=== PATIENT | male | born 1965 | race Caucasian/White ===

== ENCOUNTER 2017-07-29 07:01 | Day surgery (SDC) | payer OTHER ==
[2017-07-22 15:00] VITALS: BMI 29.2
[~2017-07-29 07:01] MED LIST: LACTATED RINGERS 1,000 ML IV SCH; LIDOCAINE 1% 20 ML VIAL (10MG/ML) FOR IV START INTRADERMA PRN
[2017-07-29 07:16] VITALS: TEMP 98.6
[2017-07-29] MEDS ORDERED: LIDOCAINE 1% INJ 10MG/ML (20 ML MDV) ONE (07:38)
[2017-07-29] MEDS ORDERED: PROPOFOL 10 MG/ML 20 ML VIAL IV ONE (07:38)
--- NOTE | 2017-07-29 07:58 | P.GSHP ---
History of Present Illness H&P Date: 07/29/17 Chief Complaint: Screening colonoscopy This is a 51-year-old male referred from Dr. Jones. Patient presents today for screening colonoscopy. He denies a significant GI complaints. Past Medical History Past Medical History: No Reported History Additional Past Medical History / Comment(s): SCREENING History of Any Multi-Drug Resistant Organisms: None Reported Past Surgical History: Hernia Repair, Tonsillectomy Additional Past Surgical History / Comment(s): HERNIA X 2. RT BICEP TENDON REPAIR Past Anesthesia/Blood Transfusion Reactions: No Reported Reaction Smoking Status: Former smoker - Past Family History Mother Family Medical History: Diabetes Mellitus Father Family Medical History: Cancer Medications and Allergies Home Medications Medication Instructions Recorded Confirmed Type No Known Home Medications [No 07/22/17 07/29/17 History Known Home Medications] Allergies Allergy/AdvReac Type Severity Reaction Status Date / Time No Known Allergies Allergy Verified 07/22/17 14:56 Surgical - Exam Vital Signs Temp Pulse Resp BP Pulse Ox 98.6 F 80 14 133/60 95 07/29/17 07:14 07/29/17 07:14 07/29/17 07:14 07/29/17 07:14 07/29/17 07:14 - General well developed, no distress - Eyes PERRL - ENT normal pinna - Neck no masses - Respiratory normal expansion - Cardiovascular Rhythm: regular - Abdomen Abdomen: soft, non tender Assessment and Plan Assessment: We'll perform screening colonoscopy.
--- NOTE | 2017-07-29 08:14 | P.OP ---
Date of Procedure: 07/29/17 Preoperative Diagnosis: Screening colonoscopy Postoperative Diagnosis: Normal colonoscopy Procedure(s) Performed: Colonoscopy Anesthesia: MAC Surgeon: Rober Holland Pathology: none sent Condition: stable Disposition: PACU Description of Procedure: PROCEDURE: The patient was placed on the endoscopy table in the lateral position. Digital rectal examination was performed which revealed no abnormalities. The prostate was symmetrical without nodules. Flexible colonoscope was then placed in the patient's anus and passed throughout the entire colon. The ileocecal valve was visualized. The cecum, ascending, transverse, descending and sigmoid colon were normal. The rectum was normal as well. There were no masses, polyps or diverticula noted in the entire colon. SUMMARY OF FINDINGS: Normal colonoscopy.
[2017-07-29 08:29] VITALS: RESP 18
[2017-07-29 09:00] VITALS: BP 141/95; PULSE 76
== END 2017-07-29 09:03 | disposition home or self-care (01) ==
LOC: ORWHC2ENDO 07:01
PROVIDERS: ATTEND Surgery
DX: Z12.11 Encounter for screening for malignant neoplasm of colon (principal); Z87.891 Personal history of nicotine dependence; Z83.3 Family history of diabetes mellitus; Z80.9 Family history of malignant neoplasm, unspecified
CPT/HCPCS: G0121; J2001; J2704; 45378

== ENCOUNTER 2020-10-17 21:35 | Emergency (ER) | payer OTHER ==
[2020-10-17 22:52] LABS: Basophils # (A) 0.1 k/uL (0-0.2); Basophils % (A) 1 %; Eosinophils # (A) 0.1 k/uL (0-0.7); Eosinophils % (A) 1 %; HCT 48.4 % (39.0-53.0); HGB 16.9 gm/dL (13.0-17.5); Lymphocytes # (A) 3.1 k/uL (1.0-4.8); Lymphocytes % (A) 31 %; MCHC 34.9 g/dL (31.0-37.0); MCV 86.1 fL (80.0-100.0); Mean Platelet Volume 6.8; Monocytes # (A) 0.7 k/uL (0-1.0); Monocytes % (A) 7 %; Neutrophils # (A) 6.1 k/uL (1.3-7.7); Neutrophils % (A) 60 %; Platelet Count 269 k/uL (150-450); RBC 5.63 m/uL (4.30-5.90); RDW 12.6 % (11.5-15.5); WBC 10.2 k/uL (3.8-10.6)
--- NOTE | 2020-10-17 22:56 | XR ---
EXAMINATION TYPE: XR chest 2V DATE OF EXAM: 10/17/2020 COMPARISON: NONE HISTORY: Dysrhythmia TECHNIQUE: FINDINGS: Heart and mediastinum are normal. Lungs are clear. Diaphragm is normal. Bony thorax appears normal. IMPRESSION: Normal chest. Normal heart.
--- NOTE | 2020-10-17 23:00 | ED ---
Arrhythmia/Palpitations HPI - General Source: patient, family, RN notes reviewed Mode of arrival: ambulatory - History of Present Illness MD Complaint: "skipped beats" <Gamaliel Singh - Last Filed: 10/17/20 23:14> <Rik Sahu - Last Filed: 10/18/20 00:53> - General Chief Complaint: Arrhythmia/Palpitations Stated Complaint: High BP Time Seen by Provider: 10/17/20 21:44 - History of Present Illness Initial Comments: ` This is a 54-year-old male with a history of hypertension who is been on different medications recently who states his blood pressure is been up recently he does get off of steroids for treatment. He states he felt as if he was having some numbness fires or missed beats tonight 5 episodes of it. He also states he has some night sweats the past couple days. He also states he has some left-sided sharp flank pain/left lower chest upper quadrant area pain. Sharp in nature several episodes of. No hematuria no nausea vomiting diarrhea as patient no other symptoms reported. No prior history of any heart disease or arrhythmia family history of the same. (Gamaliel Singh) - Related Data Home Medications Medication Instructions Recorded Confirmed Chlorthalidone 25 mg PO DAILY 10/17/20 10/17/20 Ibuprofen [Motrin Ib] 800 mg PO Q8H PRN 10/17/20 10/17/20 Allergies Allergy/AdvReac Type Severity Reaction Status Date / Time No Known Allergies Allergy Verified 10/17/20 22:07 Review of Systems ROS Other: All systems not noted in ROS Statement are negative. <Gamaliel Singh - Last Filed: 10/17/20 23:14> ROS Other: All systems not noted in ROS Statement are negative. <Rik Sahu - Last Filed: 10/18/20 00:53> ROS Statement: Those systems with pertinent positive or pertinent negative responses have been documented in the HPI. Past Medical History Past Medical History: Hypertension Additional Past Medical History / Comment(s): SCREENING History of Any Multi-Drug Resistant Organisms: None Reported Past Surgical History: Hernia Repair, Tonsillectomy Additional Past Surgical History / Comment(s): HERNIA X 2. RT BICEP TENDON REPAIR Past Anesthesia/Blood Transfusion Reactions: No Reported Reaction Past Psychological History: No Psychological Hx Reported Smoking Status: Former smoker Past Alcohol Use History: Occasional Past Drug Use History: None Reported - Past Family History Mother Family Medical History: Diabetes Mellitus Father Family Medical History: Cancer <FranciscoGamaliel - Last Filed: 10/17/20 23:14> General Exam General appearance: alert, in no apparent distress Head exam: Present: atraumatic, normocephalic, normal inspection Eye exam: Present: normal appearance, PERRL, EOMI. Absent: scleral icterus, conjunctival injection, periorbital swelling ENT exam: Present: normal exam, mucous membranes moist Neck exam: Present: normal inspection. Absent: tenderness, meningismus, lymphadenopathy Respiratory exam: Present: normal lung sounds bilaterally. Absent: respiratory distress, wheezes, rales, rhonchi, stridor Cardiovascular Exam: Present: normal rhythm, tachycardia, normal heart sounds. Absent: systolic murmur, diastolic murmur, rubs, gallop, clicks GI/Abdominal exam: Present: soft, normal bowel sounds. Absent: distended, tenderness, guarding, rebound, rigid Extremities exam: Present: normal inspection, full ROM, normal capillary refill. Absent: tenderness, pedal edema, joint swelling, calf tenderness Back exam: Present: normal inspection Neurological exam: Present: alert, oriented X3, CN II-XII intact Psychiatric exam: Present: normal affect, normal mood Skin exam: Present: warm, dry, intact, normal color. Absent: rash <Gamaliel Singh - Last Filed: 10/17/20 23:14> - General Exam Comments Initial Comments: this a well-developed well-nourished awake alert oriented times 3 male (Gamaliel Singh) Course <Gamaliel Singh - Last Filed: 10/17/20 23:14> Vital Signs 10/17/20 10/17/20 10/17/20 21:37 22:30 23:30 Temperature 98.4 F Pulse Rate 110 H 82 86 Respiratory 19 20 20 Rate Blood Pressure 165/60 139/86 134/83 O2 Sat by Pulse 95 98 97 Oximetry - Reevaluation(s) Reevaluation #1: 10/17/20 23:14 the patient is resting comfortably time blood pressure is improved I don't discu ssed with him as well as regarding the initial findings the case will be endorsed to Dr. Sahu at our shift change pending lab evaluation. (Gamaliel Singh) EKG Findings - EKG Results: EKG: interpreted by ERMD, sinus rhythm (sinus rhythm of 104. Interval 138 QRS duration 86 QT since QTC 342/449 left anterior fascicular block pulses criteria for LVH occasional unifocal PVCs) <Gamaliel Singh - Last Filed: 10/17/20 23:14> Medical Decision Making - Lab Data Result diagrams: 10/17/20 22:08 10/17/20 22:08 <Gamaliel Singh - Last Filed: 10/17/20 23:14> - Lab Data Result diagrams: 10/17/20 22:08 10/17/20 22:08 <Rik Sahu - Last Filed: 10/18/20 00:53> - Lab Data Lab Results 10/17/20 10/17/20 10/17/20 Range/Units 22:08 22:08 22:08 WBC 10.2 (3.8-10.6) k/uL RBC 5.63 (4.30-5.90) m/uL Hgb 16.9 (13.0-17.5) gm/dL Hct 48.4 (39.0-53.0) % MCV 86.1 (80.0-100.0) fL MCH 30.0 (25.0-35.0) pg MCHC 34.9 (31.0-37.0) g/dL RDW 12.6 (11.5-15.5) % Plt Count 269 (150-450) k/uL MPV 6.8 Neutrophils % 60 % Lymphocytes % 31 % Monocytes % 7 % Eosinophils % 1 % Basophils % 1 % Neutrophils # 6.1 (1.3-7.7) k/uL Lymphocytes # 3.1 (1.0-4.8) k/uL Monocytes # 0.7 (0-1.0) k/uL Eosinophils # 0.1 (0-0.7) k/uL Basophils # 0.1 (0-0.2) k/uL PT 10.3 (9.0-12.0) sec INR 1.0 (<1.2) APTT 23.1 (22.0-30.0) sec D-Dimer 0.25 (<0.60) mg/L FEU Sodium 138 (137-145) mmol/L Potassium 3.4 L (3.5-5.1) mmol/L Chloride 100 (98-107) mmol/L Carbon Dioxide 26 (22-30) mmol/L Anion Gap 12 mmol/L BUN 30 H (9-20) mg/dL Creatinine 1.02 (0.66-1.25) mg/dL Est GFR (CKD-EPI)AfAm >90 (>60 ml/min/1.73 sqM) Est GFR (CKD-EPI)NonAf 83 (>60 ml/min/1.73 sqM) Glucose 126 H (74-99) mg/dL Calcium 10.3 H (8.4-10.2) mg/dL Magnesium 1.8 (1.6-2.3) mg/dL Total Bilirubin 0.4 (0.2-1.3) mg/dL AST 32 (17-59) U/L ALT 64 H (4-49) U/L Alkaline Phosphatase 80 (38-126) U/L Creatine Kinase 70 (55-170) U/L Troponin I (0.000-0.034) ng/mL Total Protein 7.3 (6.3-8.2) g/dL Albumin 4.3 (3.5-5.0) g/dL TSH 1.550 (0.465-4.680) mIU/L Urine Color Urine Appearance (Clear) Urine pH (5.0-8.0) Ur Specific [place] (1.001-1.035) Urine Protein (Negative) Urine Glucose (UA) (Negative) Urine Ketones (Negative) Urine Blood (Negative) Urine Nitrite (Negative) Urine Bilirubin (Negative) Urine Urobilinogen (<2.0) mg/dL Ur Leukocyte Esterase (Negative) 10/17/20 10/17/20 Range/Units 22:08 23:39 WBC (3.8-10.6) k/uL RBC (4.30-5.90) m/uL Hgb (13.0-17.5) gm/dL Hct (39.0-53.0) % MCV (80.0-100.0) fL MCH (25.0-35.0) pg MCHC (31.0-37.0) g/dL RDW (11.5-15.5) % Plt Count (150-450) k/uL MPV Neutrophils % % Lymphocytes % % Monocytes % % Eosinophils % % Basophils % % Neutrophils # (1.3-7.7) k/uL Lymphocytes # (1.0-4.8) k/uL Monocytes # (0-1.0) k/uL Eosinophils # (0-0.7) k/uL Basophils # (0-0.2) k/uL PT (9.0-12.0) sec INR (<1.2) APTT (22.0-30.0) sec D-Dimer (<0.60) mg/L FEU Sodium (137-145) mmol/L Potassium (3.5-5.1) mmol/L Chloride (98-107) mmol/L Carbon Dioxide (22-30) mmol/L Anion Gap mmol/L BUN (9-20) mg/dL Creatinine (0.66-1.25) mg/dL Est GFR (CKD-EPI)AfAm (>60 ml/min/1.73 sqM) Est GFR (CKD-EPI)NonAf (>60 ml/min/1.73 sqM) Glucose (74-99) mg/dL Calcium (8.4-10.2) mg/dL Magnesium (1.6-2.3) mg/dL Total Bilirubin (0.2-1.3) mg/dL AST (17-59) U/L ALT (4-49) U/L Alkaline Phosphatase (38-126) U/L Creatine Kinase (55-170) U/L Troponin I <0.012 (0.000-0.034) ng/mL Total Protein (6.3-8.2) g/dL Albumin (3.5-5.0) g/dL TSH (0.465-4.680) mIU/L Urine Color Yellow Urine Appearance Clear (Clear) Urine pH 5.5 (5.0-8.0) Ur Specific [place] 1.033 (1.001-1.035) Urine Protein Trace H (Negative) Urine Glucose (UA) Negative (Negative) Urine Ketones Trace H (Negative) Urine Blood Negative (Negative) Urine Nitrite Negative (Negative) Urine Bilirubin Negative (Negative) Urine Urobilinogen <2.0 (<2.0) mg/dL Ur Leukocyte Esterase Negative (Negative) Disposition <Gamaliel Singh - Last Filed: 10/17/20 23:14> Is patient prescribed a controlled substance at d/c from ED?: No <Rik Sahu - Last Filed: 10/18/20 00:53> Clinical Impression: Palpitations Disposition: HOME SELF-CARE Condition: Good Instructions (If sedation given, give patient instructions): Heart Palpitations (ED) Referrals: Ariel Jones MD [Primary Care Provider] - 1-2 days Jennifer Pan MD [STAFF PHYSICIAN] - 1-2 days
[2020-10-17 23:05] LABS: D-Dimer 0.25 mg/L FEU (<0.60); Partial Thromboplastin Time 23.1 sec (22.0-30.0); Prothrombin Time 10.3 sec (9.0-12.0)
[2020-10-17 23:12] LABS: ALT 64 U/L (4-49); AST 32 U/L (17-59); African American GFR (CKD) >90 (>60 ml/min/1.73 sqM); Albumin 4.3 g/dL (3.5-5.0); Alkaline Phosphatase 80 U/L (38-126); Anion Gap 12 mmol/L; Blood Urea Nitrogen 30 mg/dL (9-20); Calcium 10.3 mg/dL (8.4-10.2); Carbon Dioxide 26 mmol/L (22-30); Chloride 100 mmol/L (98-107); Creatine Kinase 70 U/L (55-170); Glucose 126 mg/dL (74-99); Magnesium 1.8 mg/dL (1.6-2.3); Non-African American GFR(CKD) 83 (>60 ml/min/1.73 sqM); Potassium 3.4 mmol/L (3.5-5.1); Sodium 138 mmol/L (137-145); Total Bilirubin 0.4 mg/dL (0.2-1.3); Total Protein 7.3 g/dL (6.3-8.2)
[2020-10-17 23:54] LABS: Appearance,Urine Clear (Clear); Bilirubin,Urine Negative (Negative); Blood,Urine Negative (Negative); Color,Urine Yellow; Glucose,Urine (UA) Negative (Negative); Ketones,Urine Trace (Negative); Leukocyte Esterase,Urine Negative (Negative); Nitrite,Urine Negative (Negative); PH, Urine 5.5 (5.0-8.0); Protein,Urine Trace (Negative); Specific Gravity,Urine 1.033 (1.001-1.035); Urobilinogen,Urine <2.0 mg/dL (<2.0)
[2020-10-18 01:08] VITALS: BP 124/84; PULSE 84; RESP 15; TEMP 98
== END 2020-10-18 01:04 | disposition home or self-care (01) ==
LOC: EC 21:35
DX: R00.2 Palpitations (principal); R00.0 Tachycardia, unspecified; R61 Generalized hyperhidrosis; I10 Essential (primary) hypertension; Z79.899 Other long term (current) drug therapy; Z87.891 Personal history of nicotine dependence; Z90.89 Acquired absence of other organs
CPT/HCPCS: 36415; 71046; 80053; 81003; 82550; 83735; 84443; 84484; 85025; 85379; 85610; 85730; 93005; 99285